=== PATIENT | male | born 1970 | race Caucasian/White ===

== ENCOUNTER 2017-05-17 08:07 | Emergency (ER) | payer OTHER ==
--- NOTE | 2017-05-17 08:47 | ED Physician Documentation ---
General Adult - HISTORIAN Historian: patient - HPI Stated Complaint: chest congestion Chief Complaint: Cough/ Upper Respiratory Additional Information: Patient started to have some chest congestion about one month ago. Has been waxing and waining some. Cough has been productive. No chest pain. No orthopnic symptoms. No fever or chills noted. Onset: other (1 month) Timing: still present Further Comments: no - ROS CONST: no problems. denies: fever, chills - PAST HX Past History: hypertension. denies: asthma, COPD Other History: none Surgeries/Procedures: none Allergies/Adverse Reactions: Allergies Allergy/AdvReac Type Severity Reaction Status Date / Time No Known Allergies Allergy Verified 05/17/17 08:22 Home Medications: Ambulatory Orders Medication Instructions Recorded Lisinopril/Hydrochlorothiazide 1 tab PO DAILY 07/04/15 [Prinizide] Azithromycin [Zithromax] 250 mg PO QD #6 tablet 05/17/17 - SOCIAL HX Smoking History: non-smoker Alcohol Use: none Drug Use: none - FAMILY HX Family History: No - VITAL SIGNS Vital Signs: Vital Signs Temp Pulse Resp BP Pulse Ox 95.5 F L 89 19 134/91 96 05/17/17 08:13 05/17/17 08:13 05/17/17 08:13 05/17/17 08:13 05/17/17 08:13 - REVIEWED ASSESSMENTS Nursing Assessment Reviewed: Yes Vitals Reviewed: Yes ED Results Lab/Radiology - Radiology Radiology Impressions: Examination: PA and lateral chest. History: Evaluate lung andersen. Findings: PA lateral chest demonstrate a normal cardiac and mediastinal silhouette. No focal infiltrate. No blunting of the costophrenic margins. Osseous structures are appropriate for age. Impression: No acute pulmonary process. General Adult Physical Exam - PHYSICAL EXAM GENERAL APPEARANCE: mild distress EENT: ENT inspection normal, TM's nml. No: oral lesions NECK: normal inspection, thyroid normal, supple RESPIRATORY: no resp distress, chest non-tender, breath sounds normal, rhonchi ( few rhonchi on the right). No: wheezes, rales CVS: reg rate & rhythm, heart sounds normal, equal pulses, no murmur, no gallop ABDOMEN: soft, no organomegaly, normal bowel sounds, no abdominal bruit, no distension SKIN: warm/dry, other (venous stasis changes to the lower legs bilaterally) EXTREMITIES: non-tender, normal range of motion NEURO: oriented X3, CN's nml as tested, mood/affect nml, cognition normal Discharge Clincal Impression: Acute bronchitis Prescriptions: Azithromycin [Zithromax] 250 mg PO QD #6 tablet Referrals: Christian Spencer MD [Primary Care Provider] - 2 Days Additional Instructions: Drink a lot of fluids. Continue to take some Mucinex or Robitussin. Take Azithromycin as directed. If you continue to have some problems you might want to try some Claritin or Olga and see your primary care provider. Condition: Stable Disposition: 01 HOME, SELF-CARE Decision to Admit: NO Date of Decison to Admit: 05/17/17 Decision Time: 09:32
--- NOTE | 2017-05-17 09:37 | Diagnostic Imaging Report ---
DEANNA ACEVEDO [facility] [address] [facility].[address] 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 History: Evaluate lung andersen. Findings: PA lateral chest demonstrate a normal cardiac and mediastinal silhouette. No focal infiltrate. No blunting of the costophrenic margins. Osseous structures are appropriate for age. Impression: No acute pulmonary process. Electronically signed on May 17, 2017 9:09:54 AM SLURRY BLENDER by: Jose Raul ARCHER
[2017-05-17 09:45] VITALS: BP 131/98
== END 2017-05-17 09:42 | disposition home or self-care (01) ==
LOC: ED 08:07
DX: J20.9 Acute bronchitis, unspecified (principal)
CPT/HCPCS: 71020; 99283